=== PATIENT | female | born 1980 | race Two or more races ===

== ENCOUNTER 2017-03-18 14:27 | Emergency (ER) | payer BC ==
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
[~2017-03-18 14:27] MED LIST changes: -ASACOL HD800 MG PO; -CANASA1000 MG PO
[2017-05-04] MEDS ORDERED: ASACOL HD800 MG PO (17:24)
[2017-05-04] MEDS ORDERED: CANASA1000 MG PO (17:25)
== END 2017-03-18 15:02 | disposition disaster alternative care site (69) ==
LOC: GACC 14:27
PROC: 0HQDXZZ Repair Right Lower Arm Skin, External Approach (ICD-10-PCS; principal; 2017-03-18)
DX: S51.811A Laceration without foreign body of right forearm, initial encounter (principal); Z79.899 Other long term (current) drug therapy; Z98.890 Other specified postprocedural states; V43.52XA Car driver injured in collision with other type car in traffic accident, initial encounter

== ENCOUNTER → 2017-03-18 | Outpatient (CLI) | payer BC, OTHER ==
[~2017-03-18] MED LIST: ASACOL HD800 MG PO; CANASA1000 MG PO; COLACE100 MG PO; FEOSOL325 MG PO; MOTRIN800 MG PO; PERCOCET 5-3251 EACH PO; PRENATAL 1+1)(P1 TAB PO; TUMS200 MG PO
== END | disposition disaster alternative care site (69) ==
LOC: GAMB 14:16
DX: S59.811A Other specified injuries right forearm, initial encounter (principal); S51.811A Laceration without foreign body of right forearm, initial encounter; R58 Hemorrhage, not elsewhere classified; X58.XXXA Exposure to other specified factors, initial encounter
CPT/HCPCS: A0425; A0429

== ENCOUNTER → 2017-05-06 | Day surgery (SDC) | payer BC ==
[~2017-05-06] VITALS: Ht 160 cm; Wt 109.0 kg
[~2017-05-06] MED LIST changes: +ASACOL HD800 MG PO; +CANASA1000 MG PO
== END | disposition disaster alternative care site (69) ==
LOC: GPOC 05-04 17:00 → GEND 07:47 → GPOC 17:00
PROC: 0DBN8ZX Excision of Sigmoid Colon, Via Natural or Artificial Opening Endoscopic, Diagnostic (ICD-10-PCS; principal; 2017-05-06)
PROC: 0DBP8ZX Excision of Rectum, Via Natural or Artificial Opening Endoscopic, Diagnostic (ICD-10-PCS; 2017-05-06)
DX: K51.20 Ulcerative (chronic) proctitis without complications (principal); D12.5 Benign neoplasm of sigmoid colon; K62.1 Rectal polyp; K50.90 Crohn's disease, unspecified, without complications; Z98.890 Other specified postprocedural states
CPT/HCPCS: J2001; J7030